=== PATIENT | male | born 1945 | race Two or more races ===

== ENCOUNTER → 2021-02-03 12:49 | Outpatient (CLI) | payer OTHER | END | disposition home or self-care (01) | LOC: LAB 12:49 → RAD 12:49 | PROVIDERS: ATTEND Internal Medicine | DX: M54.5 Low back pain (principal); I10 Essential (primary) hypertension; Z01.810 Encounter for preprocedural cardiovascular examination; E03.9 Hypothyroidism, unspecified; N40.0 Benign prostatic hyperplasia without lower urinary tract symptoms; E55.9 Vitamin D deficiency, unspecified; Z12.11 Encounter for screening for malignant neoplasm of colon ==

== ENCOUNTER → 2021-02-07 10:08 | Outpatient (CLI) | payer OTHER | END | disposition home or self-care (01) | LOC: LAB 10:08 | PROVIDERS: ATTEND Internal Medicine | DX: M54.5 Low back pain (principal); I10 Essential (primary) hypertension; Z01.810 Encounter for preprocedural cardiovascular examination; E03.9 Hypothyroidism, unspecified; Z12.11 Encounter for screening for malignant neoplasm of colon; Z01.812 Encounter for preprocedural laboratory examination ==

== ENCOUNTER → 2021-05-22 08:43 | Outpatient (CLI) | payer OTHER | END | disposition home or self-care (01) | LOC: LAB 08:43 | PROVIDERS: ATTEND Internal Medicine | DX: E03.8 Other specified hypothyroidism (principal); I10 Essential (primary) hypertension; M54.5 Low back pain ==

== ENCOUNTER 2021-11-19 06:27 | Outpatient (CLI) | payer OTHER | END 2021-11-19 06:28 | disposition home or self-care (01) | LOC: LAB 06:27 | PROVIDERS: ATTEND Internal Medicine | DX: I10 Essential (primary) hypertension (principal); M54.50 Low back pain, unspecified; E03.9 Hypothyroidism, unspecified; K64.8 Other hemorrhoids; Z12.11 Encounter for screening for malignant neoplasm of colon ==

== ENCOUNTER 2021-11-20 15:41 | Outpatient (CLI) | payer OTHER | END 2021-11-20 15:48 | disposition home or self-care (01) | LOC: LAB 15:41 | PROVIDERS: ATTEND Internal Medicine | DX: I10 Essential (primary) hypertension (principal); M54.50 Low back pain, unspecified; E03.9 Hypothyroidism, unspecified; K64.8 Other hemorrhoids; M79.671 Pain in right foot ==

== ENCOUNTER 2022-03-18 06:26 | Outpatient (CLI) | payer OTHER | END 2022-03-18 06:31 | disposition home or self-care (01) | LOC: LAB 06:26 | PROVIDERS: ATTEND Internal Medicine | DX: I10 Essential (primary) hypertension (principal); M54.50 Low back pain, unspecified; E03.9 Hypothyroidism, unspecified; K64.8 Other hemorrhoids; N40.1 Benign prostatic hyperplasia with lower urinary tract symptoms ==

== ENCOUNTER → 2022-11-12 07:17 | Outpatient (CLI) | payer OTHER | END | disposition home or self-care (01) | LOC: LAB 07:17 | PROVIDERS: ATTEND Internal Medicine | DX: M54.59 Other low back pain (principal); E03.9 Hypothyroidism, unspecified; K64.8 Other hemorrhoids; I10 Essential (primary) hypertension ==

== ENCOUNTER 2024-07-06 13:15 | Outpatient (CLI) | payer OTHER | END 2024-07-06 13:18 | disposition home or self-care (01) | LOC: RAD 13:15 | PROVIDERS: ATTEND Physical Medicine & Rehabilitation | DX: M25.511 Pain in right shoulder (principal); M54.6 Pain in thoracic spine; M54.50 Low back pain, unspecified ==

== ENCOUNTER 2024-08-01 05:11 | Day surgery (SDC) | payer OTHER ==
[2024-07-27 12:20] LABS: HEMATOCRIT 40.8 % (39.0-48.0); HEMOGLOBIN 13.6 g/dL (13-16.00); MEAN CORPUSCULAR HEMOGLOBIN 31.6 pg (27.00-32.0); MEAN CORPUSCULAR HGB CONC 33.3 g/dl (32.0-36.0); PLATELET COUNT 220 K/uL (150-450); RED CELL DISTRIBUTION WIDTH 13.5 % (11.5-14.5)
[2024-07-27 12:22] LABS: URINE APPEARANCE Clear; URINE BILIRRUBIN Negative (NEGATIVE); URINE COLOR Yellow; URINE GLUCOSE Negative (NEGATIVE); URINE KETONE Negative (NEGATIVE); URINE LEUKOCYTE Negative; URINE NITRATE Negative; URINE PROTEIN Negative (NEGATIVE); URINE UROBILINOGEN 0.2 E.U./dl
[2024-07-27 12:26] LABS: URINE BACTERIA 12.2 uL (0.0-1933); URINE RBC 10.8 uL (0.0-20.8)
[2024-07-27 12:31] LABS: URINE BLOOD Trace; URINE EPITHELIAL CELLS 1.1 uL (0.0-38.8); URINE WBC 1.1 uL (0.0-23.2)
[2024-07-27 12:51] LABS: INR 1.02; PARTIAL THROMBOPLASTIN TIME 29.7 SECONDS (22.0-34.0); PROTHROMBIN TIME 11.1 SECONDS (9.0-11.5)
[2024-07-27 13:26] LABS: ALBUMIN 3.7 gm/dL (3.4-5.0); BILIRUBIN TOTAL 0.58 mg/dL (0.3-1.2); CALCIUM 9.6 mg/dL (8.5-10.1); CREATININE SERUM 0.88 mg/dL (0.70-1.30); GFR 84.2; GLOBULINA 3.5 G/DL (2.4-3.5); POTASSIUM 5.06 mEq/L (3.5-5.1); TOTAL PROTEIN 7.2 gm/dL (6.4-8.2)
[2024-08-01] MEDS ORDERED: CEFAZOLIN SODIUM 1,000 MG VIAL IV ONE (08:30)
[2024-08-01] MEDS ORDERED: CEFAZOLIN SODIUM 1,000 MG VIAL IV SCH (10:00)
[2024-08-01] MEDS ORDERED: FAMOTIDINE/PF 20 MG/10 ML SYRINGE IV SCH (10:00)
[2024-08-01] MEDS ORDERED: MORPHINE SULFATE 4 MG/ML VIAL IV ONE (11:50)
== END 2024-08-01 14:00 | disposition home or self-care (01) ==
LOC: CIR.AMB 05:11
PROVIDERS: ATTEND Specialist
DX: K40.90 Unilateral inguinal hernia, without obstruction or gangrene, not specified as recurrent (principal)

== ENCOUNTER 2025-03-30 16:19 | Outpatient (CLI) | payer OTHER | END 2025-03-30 16:24 | disposition home or self-care (01) | LOC: SONOGRAMA 16:19 | PROVIDERS: ATTEND Internal Medicine | DX: E03.9 Hypothyroidism, unspecified (principal); I10 Essential (primary) hypertension ==